=== PATIENT | female | born 1975 | race Caucasian/White ===

== ENCOUNTER → 2017-06-15 | Outpatient (CLI) | payer MEDICARE, OTHER ==
[2017-06-15 08:43] LABS: CH 31.7; CHCM 33.5; HCT 41.6 % (34.0-46.0); HDW 2.64; HGB 13.5 gm/dL (11.4-16.0); MCH 30.8 pg (25.0-35.0); MCHC 32.5 g/dL (31.0-37.0); MCV 94.9 fL (80.0-100.0); Mean Platelet Volume 6.5; RBC 4.38 m/uL (3.80-5.40); RDW 14.3 % (11.5-15.5); WBC 9.2 k/uL (3.8-10.6)
[2017-06-15 09:02] LABS: ALT 38 U/L (9-52); AST 19 U/L (14-36); Alkaline Phosphatase 76 U/L (38-126); Anion Gap 10 mmol/L; Blood Urea Nitrogen 12 mg/dL (7-17); Calcium 9.6 mg/dL (8.4-10.2); Carbon Dioxide 26 mmol/L (22-30); Chloride 104 mmol/L (98-107); Cholesterol 219 mg/dL (<200); Glucose 102 mg/dL (74-99); HDL Cholesterol 55 mg/dL (40-60); Non-African American GFR(MDRD) >60 (>60 ml/min/1.73 sqM); Potassium 3.8 mmol/L (3.5-5.1); Sodium 140 mmol/L (137-145); Total Bilirubin 0.3 mg/dL (0.2-1.3); Total Protein 6.8 g/dL (6.3-8.2); Triglycerides 270 mg/dL (<150)
== END | disposition home or self-care (01) ==
LOC: LABWHC1 08:05
PROVIDERS: ATTEND Internal Medicine
DX: Z00.01 Encounter for general adult medical examination with abnormal findings (principal); E78.2 Mixed hyperlipidemia; E03.9 Hypothyroidism, unspecified; I11.9 Hypertensive heart disease without heart failure
CPT/HCPCS: 36415; 80053; 80061; 84439; 84443; 85027

== ENCOUNTER → 2017-06-16 | Outpatient (CLI) | payer MEDICARE ==
--- NOTE | 2017-06-16 19:55 | HP ---
DATE OF DICTATION: 06/16/2017 CHIEF COMPLAINT: The patient is here for her routine gynecologic exam and mammogram. HISTORY OF PRESENT ILLNESS: This is a 41-year-old with an LMP of 06/05/17. The patient is status post tubal ligation. The patient is without gynecologic complaints. PAST MEDICAL HISTORY: 1. Hypothyroidism. 2. Brain aneurysm, status post stent placement. 3. Headaches. 4. Degenerative disc disease. MEDICATIONS: 1. Potassium supplement 10 mEq daily. 2. Thyroxine 50 mcg daily. 3. Enalapril malleate 5 mg daily. 4. Naproxen sodium 550 mg p.r.n. 5. Furosemide 40 mg daily. 6. Nortriptyline HCL 50 mg daily. ALLERGIES: NO KNOWN DRUG ALLERGIES. PAST SURGICAL HISTORY: Unchanged from the 2014 H&P. 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 SOCIAL HISTORY: She admits to smoking 1 to 2 cigarettes per day and has about 5 alcoholic drinks per month. She states she rarely used marijuana and denies any other drug use. She is single and is not seeing anybody at this time. She is disabled. FAMILY HISTORY: Unchanged from the 2015 H&P. REVIEW OF SYSTEMS: Weight has been stable. She denies respiratory, cardiac or GI problems. PHYSICAL EXAM: Blood pressure 115/82. Height 5 feet 2-1/2 inches. Weight 207 pounds. Temperature 99.0, pulse 78. This is a well-developed, heavyset white female who is alert and oriented x3, in no acute distress. HEENT is within normal limits. NECK: Supple without mass or thyromegaly. CHEST AND LUNGS: Clear to auscultation. HEART: Regular rate and rhythm. Breasts are without mass or discharge. Axillary exam is negative for adenopathy. BACK: Negative for CVA tenderness. ABDOMEN: Soft, non-tender, without palpable masses. PELVIC EXAM: Normal external genitalia. Cervix and vagina appear normal. There is no evidence of prolapse. The uterus is mid position, non-gravid size and non- tender. There are no palpable adnexal masses or tenderness. Rectal exam is negative for mass or tenderness but does reveal some external hemorrhoids, which are not inflamed. The rectal exam is negative for occult blood. Extremities are non-tender. IMPRESSION: Jynju-cpxeh-[id number]-old gynecologically healthy female with normal gynecologic exam. PLAN: 1. Pap smear was performed. 2. Self breast examination was discussed. 3. Mammogram will be done today. 4. She will return in one year. KAMI
--- NOTE | 2017-06-17 08:48 | MM ---
Reason for exam: screening (asymptomatic). Last mammogram was performed 1 year and 9 months ago. Physical Findings: A clinical breast exam by your physician is recommended on an annual basis and results should be correlated with mammographic findings. MG 3D Screening Mammo W/Cad Bilateral CC and MLO view(s) were taken. Prior study comparison: September 17, 2015, bilateral MG screening mammo w CAD. June 05, 2014, bilateral MG screening mammo w CAD. The breast tissue is heterogeneously dense. This may lower the sensitivity of mammography. There is no discrete abnormality. No significant changes when compared with prior studies. ASSESSMENT: Negative, BI-RAD 1 RECOMMENDATION: Routine screening mammogram of both breasts in 1 year.
== END | disposition home or self-care (01) ==
LOC: WWCWWP 08:05
PROVIDERS: ATTEND Obstetrics & Gynecology
DX: Z12.31 Encounter for screening mammogram for malignant neoplasm of breast (principal)
CPT/HCPCS: 77063; G0202

== ENCOUNTER → 2017-07-14 | Outpatient (CLI) | payer MEDICARE ==
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
[2017-07-14 11:31] LABS: Hepatitis B Surface Ag Index 0.06
[2017-07-14 11:48] LABS: Hepatitis C Virus IgG Ab Negative (Negative); Hepatitis C Virus IgG Index 0.02
[2017-07-14 18:38] LABS: Treponemal Ab Non-Reactive (Non-Reactive)
== END ==
LOC: WWCWWP 09:06
PROVIDERS: ATTEND Obstetrics & Gynecology
DX: Z11.3 Encounter for screening for infections with a predominantly sexual mode of transmission (principal)
CPT/HCPCS: 86780; 86803; 87340; 87390; 87491; 87591

== ENCOUNTER 2017-11-27 22:12 | Emergency (ER) | payer MEDICARE, OTHER ==
[2017-11-27] MEDS ORDERED: ACETAMINOPHEN TAB 500 MG TAB PO STA (22:52)
[2017-11-27] MEDS ORDERED: ONDANSETRON ODT 4 MG TAB PO STA (22:52)
[2017-11-27] MEDS ORDERED: KETOROLAC 60 MG/2 ML VIAL IM STA (22:52)
--- NOTE | 2017-11-27 23:16 | XR ---
EXAMINATION TYPE: XR chest 2V DATE OF EXAM: 11/27/2017 COMPARISON: 08/19/2016 HISTORY: Cough and fever TECHNIQUE: Frontal and lateral views of the chest are obtained. FINDINGS: Heart and mediastinum are normal. Lungs are clear. Diaphragm is normal. Bony thorax and so ft tissues appear normal. IMPRESSION: Normal chest. No change.
--- NOTE | 2017-11-27 23:31 | ED ---
URI HPI - General Chief Complaint: Upper Respiratory Infection Stated Complaint: Cough Time Seen by Provider: 11/27/17 22:44 Source: patient, RN notes reviewed Mode of arrival: ambulatory Limitations: no limitations - History of Present Illness Initial Comments: 42-year-old female presents emergency Department chief complaint cough congestion. Patient states she has been sick for 1 week diagnosed with influenza 6 days ago. Patient states that she was not given any Tamiflu she states she was given a prescription for ibuprofen and she has not been taking any Tylenol. She complains of congestion cough still. States she just does not feel well. Denies any abdominal pain denies chest pain or shortness of breath. She states she hasn't pressure and left ear states it feels like and used a pop. Patient denies any other [id number] cough and cold medications. - Related Data Home Medications Medication Instructions Recorded Confirmed Enalapril [Vasotec] 5 mg PO DAILY 04/09/15 08/08/15 Levothyroxine Sodium [Synthroid] 50 mcg PO DAILY 04/09/15 08/08/15 Nortriptyline HCl [Nortriptyline 75 mg PO DAILY 04/09/15 08/08/15 HCl] Verapamil HCl [Verapamil ER] 180 mg PO DAILY 04/24/15 08/08/15 Previous Rx's Medication Instructions Recorded Furosemide [Lasix] 20 mg PO DAILY #10 tab 04/24/15 Sulfamethox-Tmp 800-160Mg [Bactrim 2 each PO Q12HR #40 tab 08/08/15 DS 800-160 mg] Acetaminophen Tab [Tylenol Tab] 500 mg PO Q4H #30 tablet 11/27/17 Ibuprofen [Motrin] 600 mg PO Q8HR PRN #30 tab 11/27/17 Promethaz-Cod 6.25-10 mg/5 ml 5 ml PO Q6HR PRN #120 ml 11/27/17 [Phenergan with Codeine] Allergies Allergy/AdvReac Type Severity Reaction Status Date / Time No Known Allergies Allergy Verified 11/27/17 22:17 Review of Systems ROS Statement: Those systems with pertinent positive or pertinent negative responses have been documented in the HPI. ROS Other: All systems not noted in ROS Statement are negative. Past Medical History Past Medical History: Hypertension, Thyroid Disorder Additional Past Medical History / Comment(s): brain aneurism History of Any Multi-Drug Resistant Organisms: MRSA Date of last positivie culture/infection: 2007 MDRO Source:: face Past Surgical History: Section, Orthopedic Surgery Additional Past Surgical History / Comment(s): rt sided brain coil and stent, knee x3 Past Psychological History: No Psychological Hx Reported Smoking Status: Current every day smoker Past Alcohol Use History: Occasional Past Drug Use History: Marijuana General Exam Limitations: no limitations General appearance: alert, in no apparent distress Head exam: Present: atraumatic, normocephalic, normal inspection Eye exam: Present: normal appearance, PERRL, EOMI. Absent: scleral icterus, conjunctival injection, periorbital swelling ENT exam: Present: normal exam, normal oropharynx, mucous membranes moist, TM's normal bilaterally, normal external ear exam Neck exam: Present: normal inspection, full ROM. Absent: tenderness, meningismus, lymphadenopathy Respiratory exam: Present: normal lung sounds bilaterally. Absent: respiratory distress, wheezes, rales, rhonchi, stridor Cardiovascular Exam: Present: regular rate, normal rhythm, normal heart sounds. Absent: systolic murmur, diastolic murmur, rubs, gallop, clicks GI/Abdominal exam: Present: soft, normal bowel sounds. Absent: distended, tenderness, guarding, rebound, rigid Skin exam: Present: warm, dry, intact, normal color. Absent: rash Course Vital Signs 11/27/17 22:13 Temperature 98.1 F Pulse Rate 72 Respiratory 20 Rate Blood Pressure 207/90 O2 Sat by Pulse 99 Oximetry Medical Decision Making - Medical Decision Making 42-year-old female presented for cough congestion. Patient states that she is not feeling better. Patient does have influenza diagnosed prior. Patient's x- ray shows no acute infiltrate. I did explain that she needs to take Tylenol Motrin for symptoms the symptoms last 10-14 days and cough may last longer. Patient will be given cough suppressant Tylenol and Motrin. Disposition Clinical Impression: Influenza Disposition: HOME SELF-CARE Condition: Stable Instructions: Influenza (ED) Additional Instructions: Please return to the Emergency Department if symptoms worsen or any other concerns. Prescriptions: Acetaminophen Tab [Tylenol Tab] 500 mg PO Q4H #30 tablet Ibuprofen [Motrin] 600 mg PO Q8HR PRN #30 tab PRN Reason: Pain Promethaz-Cod 6.25-10 mg/5 ml [Phenergan with Codeine] 5 ml PO Q6HR PRN #120 ml PRN Reason: Cough Referrals: Agustin Garcia MD [Primary Care Provider] - 1-2 days Time of Disposition: 23:31
[2017-11-27 23:43] VITALS: BP 159/83; PULSE 70; RESP 19; TEMP 99
== END 2017-11-27 23:43 | disposition home or self-care (01) ==
LOC: EC 22:12
DX: J11.1 Influenza due to unidentified influenza virus with other respiratory manifestations (principal); I10 Essential (primary) hypertension; E07.9 Disorder of thyroid, unspecified; F17.200 Nicotine dependence, unspecified, uncomplicated; Z86.14 Personal history of Methicillin resistant Staphylococcus aureus infection; Z79.899 Other long term (current) drug therapy
CPT/HCPCS: 71020; 99283; 96372; J1885

== ENCOUNTER 2018-08-12 16:23 | Inpatient (IN) | payer MEDICARE, MEDICAID ==
[2018-08-12] MEDS ORDERED: DIPH,PERTUS(ACELL)TETVAC-LF 0.5 ML VIAL IM ONE (17:09)
--- NOTE | 2018-08-12 17:09 | ED ---
Psych HPI - General Chief Complaint: Psychiatric Symptoms Stated Complaint: Mental Health Time Seen by Provider: 08/12/18 16:30 Source: patient, RN notes reviewed Mode of arrival: ambulatory Limitations: no limitations - History of Present Illness Initial Comments: 42-year-old male presents emergency Department chief complaint of depression, suicidal ideation. Patient states she's having worsening depression last few weeks. Patient states it's just been building up on her and states that she wanted to hurt herself today. Patient states that she took a kitchen knife to her left wrist. She is unsure when her last tetanus was. She states there are abrasions noted to the wrist denies any other injuries. Patient denies any drug or alcohol abuse. Denies any other physical complaints. - Related Data Home Medications Medication Instructions Recorded Confirmed DULoxetine HCL [Cymbalta] 60 mg PO DAILY 08/12/18 08/12/18 Furosemide [Lasix] 60 mg PO DAILY 08/12/18 08/12/18 Levothyroxine Sodium [Synthroid] 75 mcg PO DAILY 08/12/18 08/12/18 Nortriptyline [Pamelor] 100 mg PO HS 08/12/18 08/12/18 traMADol HCL [Ultram] 50 mg PO QID PRN 08/12/18 08/12/18 Allergies Allergy/AdvReac Type Severity Reaction Status Date / Time No Known Allergies Allergy Verified 08/12/18 19:47 Review of Systems ROS Statement: Those systems with pertinent positive or pertinent negative responses have been documented in the HPI. ROS Other: All systems not noted in ROS Statement are negative. Past Medical History Past Medical History: Hypertension, Thyroid Disorder Additional Past Medical History / Comment(s): brain aneurism History of Any Multi-Drug Resistant Organisms: MRSA Date of last positivie culture/infection: 2007 MDRO Source:: face Past Surgical History: Section, Orthopedic Surgery Additional Past Surgical History / Comment(s): rt sided brain coil and stent, knee x3 Past Psychological History: Anxiety, Bipolar, Depression Smoking Status: Current every day smoker Past Alcohol Use History: Occasional Past Drug Use History: Marijuana General Exam Limitations: no limitations General appearance: alert, in no apparent distress, other (Patient is tearful) Head exam: Present: atraumatic, normocephalic, normal inspection Eye exam: Present: normal appearance, PERRL, EOMI. Absent: scleral icterus, conjunctival injection, periorbital swelling ENT exam: Present: normal exam, normal oropharynx, mucous membranes moist Neck exam: Present: normal inspection, full ROM. Absent: tenderness, meningismus, lymphadenopathy Respiratory exam: Present: normal lung sounds bilaterally. Absent: respiratory distress, wheezes, rales, rhonchi, stridor Cardiovascular Exam: Present: regular rate, normal rhythm, normal heart sounds. Absent: systolic murmur, diastolic murmur, rubs, gallop, clicks Extremities exam: Present: other (Superficial laceration/abrasion noted to the left wrist) Neurological exam: Present: alert, oriented X3, CN II-XII intact, reflexes normal. Absent: motor sensory deficit Skin exam: Present: warm, dry, intact, normal color. Absent: rash Course Vital Signs 08/12/18 16:25 Temperature 98.2 F Pulse Rate 77 Respiratory 18 Rate Blood Pressure 109/61 O2 Sat by Pulse 99 Oximetry Medical Decision Making - Lab Data Result diagrams: 08/13/18 09:03 08/13/18 09:03 Lab Results 08/12/18 Range/Units 17:45 Urine Opiates Screen Not Detected (NotDetected) Ur Oxycodone Screen Not Detected (NotDetected) Urine Methadone Screen Not Detected (NotDetected) Ur Propoxyphene Screen Not Detected (NotDetected) Ur Barbiturates Screen Not Detected (NotDetected) U Tricyclic Antidepress Detected H (NotDetected) Ur Phencyclidine Scrn Not Detected (NotDetected) Ur Amphetamines Screen Not Detected (NotDetected) U Methamphetamines Scrn Not Detected (NotDetected) U Benzodiazepines Scrn Not Detected (NotDetected) Urine Cocaine Screen Not Detected (NotDetected) U Marijuana (THC) Screen Detected H (NotDetected) Disposition Clinical Impression: Depression Disposition: ADMITTED IP TO THIS HOSP
[2018-08-12 18:20] LABS: Amphetamine Screen,Urine Not Detected (NotDetected); Barbiturate Screen,Urine Not Detected (NotDetected); Benzodiazepines Screen,Urine Not Detected (NotDetected); Cocaine Screen,Urine Not Detected (NotDetected); Methadone Screen, Urine Not Detected (NotDetected); Opiate Screen,Urine Not Detected (NotDetected); Oxycodone Screen, Urine Not Detected (NotDetected); Phencyclidine Screen,Urine Not Detected (NotDetected); Tricyclic Antidepressant,Urine Detected (NotDetected); Urn Cannabinoid Scrn Detected (NotDetected)
[2018-08-12] MEDS ORDERED: MAG HYDROX/AL HYDROX/SIMETH 30 ML CUP PO PRN (19:32)
[2018-08-12] MEDS ORDERED: ZIPRASIDONE 20 MG VIAL IM PRN (19:32)
[2018-08-12] MEDS ORDERED: ACETAMINOPHEN TAB 325 MG TAB PO PRN (19:32)
--- NOTE | 2018-08-12 20:51 | P.HPMEDMHU ---
History of Present Illness H&P Date: 08/12/18 Chief Complaint: Major depressive disorder 42-year-old female with PMH of brain aneurysm status post coiling and stenting in April 2019 at [facility], h/o CVA, hypothyroidism, hypertension, DJD of the back presents to the ED for worsening depression and suicidal ideation. Patient reports worsening depression over the past few weeks, leading to suicidal ideation and an attempt today. Patient reports wanting to end her life, took a kitchen knife to her left wrist which left her with abrasions. She otherwise has no direct complaints. She denies any nausea, vomiting, fever, cough, chest pain, shortness of breath, palpitations, changes in urination or bowel habits. Patient does report a decreased appetite over the past few weeks. She denies any dizziness, numbness, weakness, tingling. Patient reports chronic lower back pain with occasional radiation to the right lower extremity. Patient reports occasional headaches, aggravated with bending forward. She takes the Fioricet for her headaches. Patient also reports occasional whole body swelling for which she takes Lasix. Patient states she had been worked up previously for her swelling, no obvious cause found, attributes it to her hypothyroidism. Review of Systems All systems: negative Past Medical History Past Medical History: Hypertension, Thyroid Disorder Additional Past Medical History / Comment(s): brain aneurism History of Any Multi-Drug Resistant Organisms: MRSA Date of last positivie culture/infection: 2007 MDRO Source:: face Past Surgical History: Section, Orthopedic Surgery Additional Past Surgical History / Comment(s): rt sided brain coil and stent, knee x3 Smoking Status: Current every day smoker Medications and Allergies Home Medications Medication Instructions Recorded Confirmed Type DULoxetine HCL [Cymbalta] 60 mg PO DAILY 08/12/18 08/12/18 History Furosemide [Lasix] 60 mg PO DAILY 08/12/18 08/12/18 History Levothyroxine Sodium [Synthroid] 75 mcg PO DAILY 08/12/18 08/12/18 History Nortriptyline [Pamelor] 100 mg PO HS 08/12/18 08/12/18 History traMADol HCL [Ultram] 50 mg PO QID PRN 08/12/18 08/12/18 History Allergies Allergy/AdvReac Type Severity Reaction Status Date / Time No Known Allergies Allergy Verified 08/12/18 19:47 Physical Exam Vitals: Vital Signs Temp Pulse Resp BP Pulse Ox 08/12/18 16:25 98.2 F 77 18 109/61 99 Intake and Output 08/12/18 08/12/18 08/12/18 06:59 14:59 22:59 Other: Weight 81.647 kg General: [non toxic], [no distress], [appears at stated age] Derm: [warm], [dry] Head: [atraumatic], [normocephalic], [symmetric] Eyes: [EOMI], [no lid lag], [anicteric sclera] Mouth: [no lip lesion], [mucus membranes moist] Cardiovascular: [S1S2 reg], [no murmur], [positive DP pulse bilateral] Lungs: [CTA bilateral], [no rhonchi, no rales] , [no accessory muscle use] Abdominal: [soft], [ nontender to palpation], [no guarding], [no appreciable organomegaly] Ext: [no gross muscle atrophy], [no edema], [no contractures], [L wrist abrasion ] Neuro: [ CN II-XI grossly intact], [no focal neuro deficits] Psych: [Alert], [oriented], [appropriate affect] Cranial Nerve Examination - Cranial Nerves Cranial Nerve II- Optic: Intact Cranial Nerve III- Oculomotor: Intact Cranial Nerve IV- Trochlear: Intact Cranial Nerve V- Trigeminal: Intact Cranial Nerve - Abducens: Intact Cranial Nerve VII- Facial: Intact Cranial Nerve VIII- Auditory: Intact Cranial Nerve IX- Glossopharyngeal: Intact Cranial Nerve X- Vagus: Intact Cranial Nerve XI- Accessory: Intact Cranial Nerve XII- Hypoglossal: Intact Results Labs: Abnormal Lab Results - Last 24 Hours (Table) 08/12/18 Range/Units 17:45 U Tricyclic Antidepress Detected H (NotDetected) U Marijuana (THC) Screen Detected H (NotDetected) Thrombosis Risk Factor Assmnt - Choose All That Apply Any of the Below Risk Factors Present?: Yes Each Factor Represents 1 point: Age 41-60 years Other Risk Factors: No Other congenital or acquired thrombophilia - If yes, enter type in comment: No Thrombosis Risk Factor Assessment Total Risk Factor Score: 1 Thrombosis Risk Factor Assessment Level: Low Risk Assessment and Plan Assessment: Assessment and Plan 1. Chronic HUYNH: Likely related to brain aneurysm. Advised against [facility] for HUYNH ( rebound). Pain management with Tylenol and Tramadol. Will avoid Fioricet due to caffeine. 2. Hypothyroidism: Stable. Continue Synthroid 75 mcg PO QD. FU TSH 3. DJD of the L-spine: With radiculopathy. Pain management with Tylenol and Tramadol. Continue Cymbalta 60 mg PO QD. 4. Substance abuse: Nicotine patch 14 mg TRANSDERM QD. 5. Major Depression: With SI. Management as per Psyc. 6. DVT/GI Prophyaxis: Low risk for DVT, early mobilization. Pepcid 20 mg PO BID.
[2018-08-12] MEDS: NICOTINE 14MG/24HR PATCH TRANSDERM SCH (20:54)
[2018-08-12] MEDS: NORTRIPTYLINE 25 MG CAP PO SCH (20:54)
[2018-08-13] MEDS: LEVOTHYROXINE 75 MCG TAB PO SCH (06:24)
[2018-08-13] MEDS: DULoxetine HCL 60 MG CAPSULE.DR PO SCH (09:12)
[2018-08-13] MEDS: NICOTINE 14MG/24HR PATCH TRANSDERM SCH (09:12)
[2018-08-13 09:17] LABS: Basophils # (A) 0.1 k/uL (0-0.2); Basophils % (A) 1 %; Eosinophils # (A) 0.2 k/uL (0-0.7); Eosinophils % (A) 2 %; HCT 46.2 % (34.0-46.0); HGB 15.3 gm/dL (11.4-16.0); Lymphocytes # (A) 2.4 k/uL (1.0-4.8); Lymphocytes % (A) 27 %; MCH 31.9 pg (25.0-35.0); MCHC 33.2 g/dL (31.0-37.0); Mean Platelet Volume 6.7; Monocytes # (A) 0.4 k/uL (0-1.0); Monocytes % (A) 5 %; Neutrophils # (A) 5.7 k/uL (1.3-7.7); Neutrophils % (A) 65 %; Platelet Count 343 k/uL (150-450); RBC 4.81 m/uL (3.80-5.40); RDW 13.4 % (11.5-15.5); WBC 8.9 k/uL (3.8-10.6)
[2018-08-13 09:30] LABS: Albumin 4.1 g/dL (3.5-5.0); Bilirubin, Delta 0.3 mg/dL (0.0-0.2); Bilirubin,Unconjugated 0.2 mg/dL (0.0-1.1); Calcium 9.4 mg/dL (8.4-10.2); Potassium 4.1 mmol/L (3.5-5.1); Total Bilirubin 0.5 mg/dL (0.2-1.3); Total Protein 6.9 g/dL (6.3-8.2)
[2018-08-13] MEDS: ARIPiprazole 2 MG TAB PO SCH (16:58)
[2018-08-13] MEDS: FUROSEMIDE 20 MG TAB PO SCH (17:48)
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
[2018-08-13] MEDS: NORTRIPTYLINE 25 MG CAP PO SCH (20:16)
[2018-08-14] MEDS: LEVOTHYROXINE 75 MCG TAB PO SCH (06:33)
[2018-08-14] MEDS: NICOTINE 14MG/24HR PATCH TRANSDERM SCH (08:44)
[2018-08-14] MEDS: DULoxetine HCL 60 MG CAPSULE.DR PO SCH (08:44)
[2018-08-14] MEDS: FUROSEMIDE 20 MG TAB PO SCH (08:44)
[2018-08-14] MEDS: ARIPiprazole 2 MG TAB PO SCH (08:44)
--- NOTE | 2018-08-14 13:02 | PN ---
PROGRESS NOTE HISTORY: Patient was seen and interviewed, found a lot better. She reports her mood has been improving since we started her on medication. She is tolerating well, reporting no side effects. She did sleep good. She denies any active suicidal ideation, but she still continues to be withdrawn and isolated. She reports low energy, lack of motivation. She said groups are helping her. MENTAL STATUS EXAMINATION: The patient is alert and oriented x4. Has fair eye contact. Speech, few word sentences. Mood dysphoric with congruent affect. Denies suicidal ideation. I did not see her responding to internal stimuli. Insight and judgement improving slowly and gradually. ASSESSMENT: Major depressive disorder, recurrent, severe, without psychotic features. PLAN: Will continue with the Cymbalta and titrate up accordingly. Encouraged to do groups and meetings. Support therapy provided. CHRISTOPHER / ZONIA: [id number] /
[2018-08-14] MEDS: NORTRIPTYLINE 25 MG CAP PO SCH (20:49)
[2018-08-15] MEDS: LEVOTHYROXINE 75 MCG TAB PO SCH (05:40)
[2018-08-15] MEDS: NICOTINE 14MG/24HR PATCH TRANSDERM SCH (07:58)
[2018-08-15] MEDS: ARIPiprazole 2 MG TAB PO SCH (07:58)
[2018-08-15] MEDS: DULoxetine HCL 60 MG CAPSULE.DR PO SCH (07:59)
[2018-08-15] MEDS: FUROSEMIDE 20 MG TAB PO SCH (07:59)
--- NOTE | 2018-08-15 14:40 | P.PN ---
Subjective Progress Note Date: 08/15/18 Principal diagnosis: Major depressive disorder, severe, with history of suicidal ideation 42-year-old male presents emergency Department chief complaint of depression, suicidal ideation. Patient states she's having worsening depression last few weeks. Patient states it's just been building up on her and states that she wanted to hurt herself today. Patient states that she took a kitchen knife to her left wrist. She is unsure when her last tetanus was. She states there are abrasions noted to the wrist denies any other injuries. Patient denies any drug or alcohol abuse. Denies any other physical complaints. Past Medical History Past Medical History: Hypertension, Thyroid Disorder Additional Past Medical History / Comment(s): brain aneurism History of Any Multi-Drug Resistant Organisms: MRSA Date of last positivie culture/infection: 2007 MDRO Source:: face Past Surgical History: Section, Orthopedic Surgery Additional Past Surgical History / Comment(s): rt sided brain coil and stent, knee x3 Past Psychological History: Anxiety, Bipolar, Depression Smoking Status: Current every day smoker Past Alcohol Use History: Occasional Past Drug Use History: Marijuana Mental status examination today: She does have some abnormal facial drooping due to post-aneurysm surgery and has mood instability. Her gait appears grossly normal as well as her station appears grossly normal. This is a 42-year -old female with a significant history of depression appears to be secondary to worsening suicidal ideation. This 42-year-old female appears somewhat disheveled and appears older than stated age her speech is hesitant at times attitude and behaviors cooperative. Mood is depressed anxious irritable and hopelessness. Affect flat labile. Orientation person place and time and situation. Thought content no delusions obsessions and phobias. Risk factors for suicidal ideation. Perceptions no hallucinations auditory visual or tactile. Thought process somewhat certain circumstantial and tangential at times. Concentration appears somewhat impaired but redirectable for observation and interview with the patient. Recent memory 1 out of 3. Remote memory is within normal for past events is relates to her history. Intelligence is average based on history and vocabulary Syntex grammar content. Judgment is poor for patient behaving history of wanting to kill herself. Insight fair as per understanding severity of illness and history of present illness. Justification for hospitalization "danger to self depression and anxiety resulting in a significant loss of functioning, needing for special drug therapy , para social and occupational, biomedical conditions and complications were 24- hour medical nursing care, and treatment of a lower level because she refused to [facility] for treatment. X Nortriptyline 100 mg at bedtime Venlafaxine 37.5 mg XR at bedtime Topamax 25 mg by mouth daily at bedtime DC Nilsalijuan jose, DC Cymbalta for a have a conversation rate and [employer] abnormalities such as the aneurysm that was replaced. She has classic migraines on the right side post aneurysm and surgery. She's been on nortriptyline for number of years and will check a nortriptyline level as well as a hemoglobin A1c level. Venlafaxine has been shown to be effective and chronic pain patients/with anxiety and depression and has a minimal interaction with tricyclic antidepressants. Total time spent with patient 30 minutes [id number] and collaboration with staff 15 minutes. Objective - Vital Signs Vital signs: Vital Signs Temp 97.9 F 08/15/18 06:44 Pulse 75 08/15/18 08:02 Resp 18 08/15/18 08:02 BP 116/77 08/15/18 08:02 Pulse Ox 98 08/15/18 06:44 Intake & Output 08/14/18 08/15/18 08/15/18 18:59 06:59 18:59 Weight 82.8 kg - Labs CBC & Chem 7: 08/13/18 09:03 08/13/18 09:03
[2018-08-15 20:00] LABS: Hemoglobin A1C 5.1 % (4.0-6.0)
[2018-08-15] MEDS: NORTRIPTYLINE 25 MG CAP PO SCH (20:02)
[2018-08-15] MEDS: traMADol 50 MG TAB PO PRN (20:03)
[2018-08-15] MEDS ORDERED: TOPIRAMATE 25 MG TAB PO SCH (21:00)
[2018-08-15] MEDS ORDERED: VENLAFAXINE HCL ER 37.5 MG CAP PO SCH (21:00)
[2018-08-15] MEDS: MAGNESIUM HYDROXIDE 2,400 MG/10 ML CUP PO PRN (22:39)
[2018-08-16] MEDS: LEVOTHYROXINE 75 MCG TAB PO SCH (06:27)
[2018-08-16] MEDS: NICOTINE 14MG/24HR PATCH TRANSDERM SCH (08:35)
[2018-08-16] MEDS: LIDOCAINE 5% PATCH TOPICAL SCH (08:36)
[2018-08-16] MEDS: FUROSEMIDE 20 MG TAB PO SCH (08:36)
[2018-08-16] MEDS: MAGNESIUM HYDROXIDE 2,400 MG/10 ML CUP PO PRN (08:38)
--- NOTE | 2018-08-16 13:38 | P.PN ---
Subjective Progress Note Date: 08/16/18 Principal diagnosis: Major depressive disorder, severe, with history of suicidal ideation This 42-year-old female appears somewhat disheveled and appears older than stated age her speech is hesitant at times attitude and behaviors cooperative. Mood is depressed anxious irritable and hopelessness. Mental status examination today: She does have some abnormal facial drooping due to post-aneurysm surgery and has mood instability. Her gait appears grossly normal as well as her station appears grossly normal. This is a 42-year -old female with a significant history of depression appears to be secondary to worsening suicidal ideation. Today no suicidal thoughts. She had an agree moment today but did no loose it.Affect flat labile. Orientation person place and time and situation. Thought content no delusions obsessions and phobias. Risk factors for suicidal ideation. Perceptions no hallucinations auditory visual or tactile. Thought process somewhat certain circumstantial and tangential at times. Concentration appears somewhat impaired but redirectable for observation and interview with the patient. Recent memory 1 out of 3. Remote memory is within normal for past events is relates to her history. Intelligence is average based on history and vocabulary Syntex grammar content. Judgment is poor for patient behaving history of wanting to kill herself. Insight fair as per understanding severity of illness and history of present illness. Nortriptyline 100 mg at bedtime Venlafaxine 75 mg XR at bedtime Topamax 50 mg by mouth daily twice She has classic migraines on the right side post aneurysm and surgery. She's been on nortriptyline for number of years and will check a nortriptyline level as well as a hemoglobin A1c level which is 5.1 Venlafaxine has been shown to be effective and chronic pain patients/with anxiety and depression and has a minimal interaction with tricyclic antidepressants. Objective - Vital Signs Vital signs: Vital Signs Temp 98.3 F 08/16/18 06:40 Pulse 73 08/16/18 06:40 Resp 20 08/16/18 06:40 BP 138/78 08/16/18 06:40 Pulse Ox 98 08/15/18 06:44 - Constitutional General appearance: Present: mild distress - EENT Eyes: Present: ptosis ENT: Present: normal oropharynx - Psychiatric Psychiatric: Present: A&O x's 3 - Labs CBC & Chem 7: 08/13/18 09:03 08/13/18 09:03
[2018-08-16 14:09] LABS: Amit + Nort INDTRMNT ng/mL (90-250); Nortriptyline 80 ng/mL (50-140)
[2018-08-16] MEDS: NORTRIPTYLINE 25 MG CAP PO SCH (20:48)
[2018-08-16] MEDS: TOPIRAMATE 25 MG TAB PO SCH (20:48)
[2018-08-16] MEDS: traMADol 50 MG TAB PO PRN (20:48)
[2018-08-16] MEDS ORDERED: NA PHOS,M-B/NA PHOS,DI-BA 133 ML ENEMA RECTAL ONE (23:02)
[2018-08-17] MEDS: LEVOTHYROXINE 75 MCG TAB PO SCH (06:15)
[2018-08-17] MEDS: TOPIRAMATE 25 MG TAB PO SCH ×2 (09:18→21:16)
[2018-08-17] MEDS: NICOTINE 14MG/24HR PATCH TRANSDERM SCH (09:19)
[2018-08-17] MEDS: FUROSEMIDE 20 MG TAB PO SCH (09:19)
[2018-08-17] MEDS: LIDOCAINE 5% PATCH TOPICAL SCH (09:20)
[2018-08-17] MEDS: traMADol 50 MG TAB PO PRN (09:24)
--- NOTE | 2018-08-17 09:37 | P.PN ---
Subjective Progress Note Date: 08/17/18 Principal diagnosis: Major depressive disorder, severe, with history of suicidal ideation Principal diagnosis: Major depressive disorder, severe, with history of suicidal ideation This 42-year-old female appears somewhat disheveled and appears older than stated age her speech is hesitant at times attitude and behaviors cooperative. Mood is depressed anxious irritable and hopelessness. Mental status examination today: She does have some abnormal facial drooping due to post-aneurysm surgery and has mood instability. Her gait appears grossly normal as well as her station appears grossly normal. This is a 42-year -old female with a significant history of depression appears to be secondary to worsening suicidal ideation. Today no suicidal thoughts. She had an agree moment today but did no loose it.Affect flat labile. Orientation person place and time and situation. Thought content no delusions obsessions and phobias. Risk factors for suicidal ideation. Perceptions no hallucinations auditory visual or tactile. Thought process somewhat certain circumstantial and tangential at times. Concentration appears somewhat impaired but redirectable for observation and interview with the patient. Recent memory 1 out of 3. Remote memory is within normal for past events is relates to her history. Intelligence is average based on history and vocabulary Syntex grammar content. Judgment is poor for patient behaving history of wanting to kill herself. Insight fair as per understanding severity of illness and history of present illness. Nortriptyline 100 mg at bedtime for sleep Venlafaxine 37.5 mg XR at bedtime start tonight Topamax 75 mg by mouth daily twice changed today She has classic migraines on the right side post aneurysm and surgery. She's been on nortriptyline for number of years and will check a nortriptyline level as well as a hemoglobin A1c level which is 5.1 Venlafaxine has been shown to be effective and chronic pain patients/with anxiety and depression and has a minimal interaction with tricyclic antidepressants. Objective - Vital Signs Vital signs: Vital Signs Temp 98.2 F 08/17/18 06:23 Pulse 62 08/17/18 06:23 Resp 14 08/17/18 06:23 BP 117/72 08/17/18 06:23 Pulse Ox 98 08/15/18 06:44 - Labs CBC & Chem 7: 08/13/18 09:03 08/13/18 09:03 Labs: Abnormal Lab Results - Last 24 Hours (Table) 08/16/18 Range/Units 13:57 Total T4 12.0 H (4.5 - 10.9) ug/dL
[2018-08-17] MEDS ORDERED: VENLAFAXINE HCL ER 37.5 MG CAP PO SCH (21:00)
[2018-08-17] MEDS: NORTRIPTYLINE 25 MG CAP PO SCH (21:16)
[2018-08-17] MEDS: MAGNESIUM HYDROXIDE 2,400 MG/10 ML CUP PO PRN (21:19)
[2018-08-18] MEDS: LEVOTHYROXINE 75 MCG TAB PO SCH (06:49)
[2018-08-18] MEDS: NICOTINE 14MG/24HR PATCH TRANSDERM SCH (08:41)
[2018-08-18] MEDS: LIDOCAINE 5% PATCH TOPICAL SCH (08:42)
[2018-08-18] MEDS: TOPIRAMATE 25 MG TAB PO SCH (08:42)
[2018-08-18] MEDS: FUROSEMIDE 20 MG TAB PO SCH (08:43)
--- NOTE | 2018-08-18 12:41 | P.PN ---
Subjective Progress Note Date: 08/18/18 Principal diagnosis: Major depressive disorder, severe, with history of suicidal ideation Principal diagnosis: Major depressive disorder, severe, with history of suicidal ideation This 42-year-old female appears somewhat disheveled and appears older than stated age her speech is hesitant at times attitude and behaviors cooperative. Mood is depressed anxious irritable and hopelessness.Complaints of constipation. She also has right eye vision change with halo and like looking thru prisms. ? Mental status examination today: She does have some abnormal facial drooping due to post-aneurysm surgery and has mood instability. Her gait appears grossly normal as well as her station appears grossly normal. This is a 42-year -old female with a significant history of depression appears to be secondary to worsening suicidal ideation. Today no suicidal thoughts. She had an agree moment today but did no loose it.Affect flat labile. Orientation person place and time and situation. Thought content no delusions obsessions and phobias. Risk factors for suicidal ideation. Perceptions no hallucinations auditory visual or tactile. Thought process somewhat certain circumstantial and tangential at times. Concentration appears somewhat impaired but redirectable for observation and interview with the patient. Recent memory 1 out of 3. Remote memory is within normal for past events is relates to her history. Intelligence is average based on history and vocabulary Syntex grammar content. Judgment is poor for patient behaving history of wanting to kill herself. Insight fair as per understanding severity of illness and history of present illness. Nortriptyline 100 mg at bedtime for sleep Venlafaxine 75 mg XR at bedtime at bedtime Topamax 100 mg by mouth daily twice changed today Calace 100 mg po prn She has classic migraines on the right side post aneurysm and surgery. She's been on nortriptyline for number of years and will check a nortriptyline level as well as a hemoglobin A1c level which is 5.1 Venlafaxine has been shown to be effective and chronic pain patients/with anxiety and depression and has a minimal interaction with tricyclic antidepressants. Objective - Vital Signs Vital signs: Vital Signs Temp 97.7 F 08/18/18 05:13 Pulse 76 08/18/18 05:13 Resp 12 08/18/18 05:13 BP 123/82 08/18/18 05:13 Pulse Ox 98 08/15/18 06:44 - Labs CBC & Chem 7: 08/13/18 09:03 08/13/18 09:03
[2018-08-18] MEDS: LORazepam 1 MG TAB PO PRN (15:06)
[2018-08-18] MEDS: NORTRIPTYLINE 25 MG CAP PO SCH (20:36)
[2018-08-18] MEDS: TOPIRAMATE 100 MG TAB PO SCH (20:37)
[2018-08-18] MEDS: DOCUSATE 100 MG CAP PO PRN (20:41)
[2018-08-18] MEDS ORDERED: VENLAFAXINE HCL ER 75 MG CAP PO SCH (21:00)
[2018-08-19] MEDS: LEVOTHYROXINE 100 MCG TAB PO SCH (05:55)
[2018-08-19] MEDS: LIDOCAINE 5% PATCH TOPICAL SCH (08:33)
[2018-08-19] MEDS: TOPIRAMATE 100 MG TAB PO SCH ×2 (08:34→20:02)
[2018-08-19] MEDS: DOCUSATE 100 MG CAP PO PRN (08:34)
[2018-08-19] MEDS: NICOTINE 14MG/24HR PATCH TRANSDERM SCH (08:34)
[2018-08-19] MEDS: FUROSEMIDE 20 MG TAB PO SCH (08:34)
--- NOTE | 2018-08-19 12:22 | P.PN ---
Subjective Progress Note Date: 08/19/18 Principal diagnosis: Major depressive disorder, severe, with history of suicidal ideation Principal diagnosis: Major depressive disorder, severe, with history of suicidal ideation This 42-year-old female appears somewhat disheveled and appears older than stated age her speech is hesitant at times attitude and behaviors cooperative. Mood is depressed anxious irritable and hopelessness.Complaints of constipation. She also has right eye vision change with halo and like looking thru prisms. ? Mental status examination today: She does have some abnormal facial drooping due to post-aneurysm surgery and has mood instability. Her gait appears grossly normal as well as her station appears grossly normal. This is a 42-year -old female with a significant history of depression appears to be secondary to decrease suicidal ideation. Today no suicidal thoughts. She had an agree moment today but did no loose it.Affect flat labile. Orientation person place and time and situation. Thought content no delusions obsessions and phobias. Risk factors for suicidal ideation. Perceptions no hallucinations auditory visual or tactile. Thought process somewhat certain circumstantial and tangential at times. Concentration appears somewhat impaired but redirectable for observation and interview with the patient. Recent memory 3 out of 3. Remote memory is within normal for past events is relates to her history. Intelligence is average based on history and vocabulary Syntex grammar content. Judgment is improving for patient behaving history of wanting to kill herself but not today. Insight fair as per understanding severity of illness and history of present illness. Recent argument with LTP and able to stand up for herself of wether she wanted to be with a woman and it made the patient very upset. Nortriptyline 100 mg at bedtime for sleep Venlafaxine 150 mg XR at bedtime at bedtime change today Topamax 100 mg by mouth daily bid changed Calace 100 mg po prn She has classic migraines on the right side post aneurysm and surgery. She's been on nortriptyline for number of years and a nortriptyline level (80 ng.ml) as well as a hemoglobin A1c level which is 5.1 Venlafaxine has been shown to be effective and chronic pain patients/with anxiety and depression and has a minimal interaction with tricyclic antidepressants. Objective - Vital Signs Vital signs: Vital Signs Temp 98.2 F 08/19/18 06:41 Pulse 90 08/19/18 06:41 Resp 16 08/19/18 06:41 BP 123/75 08/19/18 06:41 Pulse Ox 98 08/15/18 06:44 - Labs CBC & Chem 7: 08/13/18 09:03 08/13/18 09:03
[2018-08-19] MEDS: LORazepam 1 MG TAB PO PRN (14:00)
[2018-08-19] MEDS: NORTRIPTYLINE 25 MG CAP PO SCH (20:02)
[2018-08-19] MEDS: VENLAFAXINE HCL ER 150 MG CAP PO SCH (20:03)
[2018-08-19] MEDS: traMADol 50 MG TAB PO PRN (21:19)
[2018-08-20] MEDS: LEVOTHYROXINE 100 MCG TAB PO SCH (06:05)
[2018-08-20] MEDS: FUROSEMIDE 20 MG TAB PO SCH (07:50)
[2018-08-20] MEDS: NICOTINE 14MG/24HR PATCH TRANSDERM SCH (07:50)
[2018-08-20] MEDS: TOPIRAMATE 100 MG TAB PO SCH ×2 (07:50→20:46)
[2018-08-20] MEDS: traMADol 50 MG TAB PO PRN ×2 (07:53→20:47)
[2018-08-20] MEDS: DOCUSATE 100 MG CAP PO PRN (07:54)
[2018-08-20] MEDS: LIDOCAINE 5% PATCH TOPICAL SCH (08:47)
--- NOTE | 2018-08-20 12:25 | P.PN ---
Progress Note - Text Interval history: The patient is found in the [facility] she follows me to an interview room. She reports that her mood is stabilizing. She states that she was admitted for suicidal ideation and she had superficially cut her upper extremity. She states that she has had an irritable component to her depression but she feels that she is making better choices. She is able to sleep appetite stable. We reviewed her psychotropic medications and she has no questions regarding them. She feels that she is doing better and hopes to be discharged Wednesday. Mental status exam: The patient is alert she is dressed in her own clothing hygiene grooming adequate. Speech is fluent spontaneous nonpressured. She indicates her mood is improving she denies having any suicidal ideation intent or plan. She is reporting no homicidal ideation intent or plan. She reports no auditory or visual hallucinations or any specific delusions and there is no observed evidence of psychosis. Thought process is linear she demonstrates no tangential thinking loose associations or flight of ideas. Insight and judgment improving. She is oriented to person place and date. Plan: The patient will continue on her current psychotropic medications. We will continue to monitor her for safety and encourage full participation in the milieu. Vital signs reviewed.
[2018-08-20] MEDS: LORazepam 1 MG TAB PO PRN (16:36)
[2018-08-20] MEDS: VENLAFAXINE HCL ER 150 MG CAP PO SCH (20:46)
[2018-08-20] MEDS: NORTRIPTYLINE 25 MG CAP PO SCH (20:46)
[2018-08-21] MEDS: LEVOTHYROXINE 100 MCG TAB PO SCH (06:13)
[2018-08-21 06:46] VITALS: TEMP 97.7
[2018-08-21] MEDS: LIDOCAINE 5% PATCH TOPICAL SCH (07:30)
[2018-08-21] MEDS: FUROSEMIDE 20 MG TAB PO SCH (07:31)
[2018-08-21] MEDS: TOPIRAMATE 100 MG TAB PO SCH ×2 (07:31→20:15)
[2018-08-21] MEDS: NICOTINE 14MG/24HR PATCH TRANSDERM SCH (07:31)
--- NOTE | 2018-08-21 10:41 | P.PN ---
Progress Note - Text Interval history: The patient is found in the hallway she follows me to an interview room. She states that her mood is good she feels that she is chronically stabilizing. She states spontaneously "I'm keeping my anger under control". She does not feel depressed. Anxiety is controlled. She states that she slept well last night appetite is stable she is attending groups. We reviewed her psychotropic medication she has no questions regarding those. She is anticipating a discharge tomorrow. She has been compliant with group attendance. Mental status exam: The patient is an overweight female appearing her stated age. Hygiene and grooming are adequate. She has several tattoos visible. She is wearing a homemade shirt but identifies her as the "cat lady". She denies having any suicidal or homicidal ideation intent or plan. She is reporting no auditory or visual hallucinations or any specific delusions. She demonstrates no observed evidence of psychosis. She does not appear hypomanic or manic. Insight and judgment improving. She is oriented to person place and date. She demonstrates no verbal or physical aggressiveness. Affect is appropriately expressive and appears euthymic this morning. Plan: The patient will continue on her current psychotropic medications. She appears to be clinically stabilizing. We will monitor her for safety and continue to encourage her full participation in the milieu.
[2018-08-21] MEDS: traMADol 50 MG TAB PO PRN ×2 (10:46→20:15)
[2018-08-21] MEDS: DOCUSATE 100 MG CAP PO PRN (10:48)
[2018-08-21] MEDS: VENLAFAXINE HCL ER 150 MG CAP PO SCH (20:15)
[2018-08-21] MEDS: NORTRIPTYLINE 25 MG CAP PO SCH (20:15)
[2018-08-22] MEDS: LEVOTHYROXINE 100 MCG TAB PO SCH (06:13)
[2018-08-22 06:55] VITALS: BP 121/77; PULSE 66; RESP 14
[2018-08-22] MEDS: LIDOCAINE 5% PATCH TOPICAL SCH (08:37)
[2018-08-22] MEDS: TOPIRAMATE 100 MG TAB PO SCH (08:39)
[2018-08-22] MEDS: NICOTINE 14MG/24HR PATCH TRANSDERM SCH (08:39)
[2018-08-22] MEDS: DOCUSATE 100 MG CAP PO PRN (08:39)
[2018-08-22] MEDS: FUROSEMIDE 20 MG TAB PO SCH (08:39)
[2018-08-22] MEDS: traMADol 50 MG TAB PO PRN (08:39)
--- NOTE | 2018-08-22 13:16 | P.DS ---
Providers Date of admission: 08/12/18 19:25 Expected date of discharge: 08/22/18 Attending physician: Marco Jennings DO Consults: 08/12/18 19:32 Consult Physician Routine Consulting Provider: Cristian Physician Consult Reason/Comments: H & P and medical care Do you want consulting provider notified?: Yes Primary care physician: Agustin Garcia - Discharge Diagnosis(es) (1) Depression Current Visit: Yes Status: Acute Priority: Low Hospital Course: Identifying Information: [42-year-old female presents emergency Department chief complaint of depression, suicidal ideation. Patient states she 's having worsening depression last few weeks. Patient states it's just been building up on her and states that she wanted to hurt herself today. Patient states that she took a kitchen knife to her left wrist. She is unsure when her last tetanus was. She states there are abrasions noted to the wrist denies any other injuries. Patient denies any drug or alcohol abuse. Denies any other physical complaints.] Past Medical History Past Medical History: Hypertension, Thyroid Disorder Additional Past Medical History / Comment(s): brain aneurism History of Any Multi-Drug Resistant Organisms: MRSA Date of last positivie culture/infection: 2007 MDRO Source:: face Past Surgical History: Section, Orthopedic Surgery Additional Past Surgical History / Comment(s): rt sided brain coil and stent, knee x3 Past Psychological History: Anxiety, Bipolar, Depression Smoking Status: Current every day smoker Past Alcohol Use History: Occasional Past Drug Use History: Marijuana. Chief Complaint and Reason for Hospitalization: [Depression and suicidal ideation] Course of Treatment: [She will discontinue her Cymbalta when she was admitted because her pain and depression are still not in control. She was started on venlafaxine and titrated to 150 mg by mouth daily at bedtime. Her T3-T4 was evaluated and found to be respectively 120 g per mL and T4 was 12 ng per mL. He was evaluated due to her TSH elevated and she was on thyroid supplementation. She was evaluated by medicine and appreciated input into the case. Urine drug screen at time of admission revealed tricyclic antidepressants which she was taking and tetrahydrocannabinol. Disc discussed in detail that this is probably not appropriate use and is currently not indicated for her chronic pain condition. She did well in work and milieu therapeutic environment, integrated into groups and recreational therapy.] Physical/Medical Condition on Discharge:[ Stable] Mental status examination: This is a 42-year-old female who looks her stated age neatly dressed and groomed today. She is oriented person place time and to the situation to why she came to the hospital. She is 2 out of 10 depressed today and anxiety 2 out of 10. She has been able to take Lidoderm patch and decrease her back pain. She has no perception difficulties she does not admit to auditory visual hallucinations. She has a full [employer] fund of knowledge today without any limitations. She is able to sleep at night with her nortriptyline, her Topamax has helped her stabilize her mood and her headaches. Functional Condition on Discharge: [Average intellect] Discharge Medications: [Discharge medications indicated below] Number of Routinely Scheduled Antipsychotic Medication(s) Prescribed: [Minus psychotic's written] Appropriate Justification for discharging the Patient on Two or More Antipsychotic Medications: [Minus psychotic's written] Discharge Diagnosis: [Major depressive disorder recurrent and currently stabilizing and discharge without suicidal or homicidal ideation] Risk Factors: [Supportive environment] Recommendations/Follow-up/Aftercare: [She needs a follow-up with her primary care physician as well as seeking therapy and continue on her medications as outlined below.] Plan - Discharge Summary Discharge Rx Participant: Yes New Discharge Prescriptions: New Furosemide [Lasix] 20 mg PO DAILY tab Levothyroxine Sodium [Synthroid] 100 mcg PO DAILY@0630 tab Lidocaine 5% Patch [Lidoderm 5% Patch] 1 patch TOPICAL DAILY #30 patch Nicotine 14Mg/24Hr Patch [Habitrol] 1 patch TRANSDERM DAILY #30 patch Topiramate [Topamax] 100 mg PO BID #60 tab Venlafaxine HCl ER [Effexor XR] 150 mg PO 1999 #30 cap.er.24h Continue Furosemide [Lasix] 60 mg PO DAILY traMADol HCL [Ultram] 50 mg PO QID PRN PRN Reason: Pain Levothyroxine Sodium [Synthroid] 75 mcg PO DAILY Nortriptyline [Pamelor] 100 mg PO HS Discontinued DULoxetine HCL [Cymbalta] 60 mg PO DAILY Discharge Medication List Furosemide [Lasix] 60 mg PO DAILY 08/12/18 [History] Levothyroxine Sodium [Synthroid] 75 mcg PO DAILY 08/12/18 [History] Nortriptyline [Pamelor] 100 mg PO HS 08/12/18 [History] traMADol HCL [Ultram] 50 mg PO QID PRN 08/12/18 [History] Furosemide [Lasix] 20 mg PO DAILY tab 08/22/18 [Rx] Levothyroxine Sodium [Synthroid] 100 mcg PO DAILY@0630 tab 08/22/18 [Rx] Lidocaine 5% Patch [Lidoderm 5% Patch] 1 patch TOPICAL DAILY #30 patch 08/22/18 [Rx] Nicotine 14Mg/24Hr Patch [Habitrol] 1 patch TRANSDERM DAILY #30 patch 08/22/18 [ Rx] Topiramate [Topamax] 100 mg PO BID #60 tab 08/22/18 [Rx] Venlafaxine HCl ER [Effexor XR] 150 mg PO 2000 #30 cap.er.24h 08/22/18 [Rx] Follow up Appointment(s)/Referral(s): [facility] [Outside] - 1-2 Days (Walk In @ [facility] Wednesday 8:30 - 3pm Wednesday 10:30 - 5 pm Wednesday 8:30 - 3pm) Agustin Garcia MD [Primary Care Provider] - 1-2 days Activity/Diet/Wound Care/Special Instructions: Repeat TSH in 4-6 weeks with your family physician. Discharge Disposition: HOME SELF-CARE
== END 2018-08-22 14:58 | disposition home or self-care (01) | DRG 885 ==
LOC: EC 16:23 → 3MHU 19:25
PROVIDERS: ADMIT Psychiatry & Neurology Psychiatry; ATTEND Psychiatry & Neurology Psychiatry
DX: F33.2 Major depressive disorder, recurrent severe without psychotic features (principal); E03.9 Hypothyroidism, unspecified; F17.200 Nicotine dependence, unspecified, uncomplicated; F41.9 Anxiety disorder, unspecified; G43.909 Migraine, unspecified, not intractable, without status migrainosus; G89.29 Other chronic pain; I10 Essential (primary) hypertension; K59.00 Constipation, unspecified; R29.810 Facial weakness; S60.819A Abrasion of unspecified wrist, initial encounter; X78.1XXA Intentional self-harm by knife, initial encounter; Z79.890 Hormone replacement therapy; Z79.899 Other long term (current) drug therapy; Z86.79 Personal history of other diseases of the circulatory system; Z62.810 Personal history of physical and sexual abuse in childhood; Z86.73 Personal history of transient ischemic attack (TIA), and cerebral infarction without residual deficits; M47.9 Spondylosis, unspecified
CPT/HCPCS: 80053; 80306; 80335; 81025; 82075; 82248; 83036; 84436; 84443; 84480; 85025; 90471; 90715; 99285

== ENCOUNTER → 2019-01-17 | Outpatient (CLI) | payer MEDICARE, OTHER ==
[2019-01-17 14:10] VITALS: BP 119/87; PULSE 75; RESP 18; TEMP 97.3; BMI 32.9
--- NOTE | 2019-01-17 15:00 | P.HPOB ---
History of Present Illness H&P Date: 01/17/19 Chief Complaint: The patient is here for her routine gynecologic exam. This is a 43-year-old with an LMP of 12/14/2018. The patient states her periods are fairly regular but seem to be fluctuating by a few days each month. She is status post tubal sterilization. She is requesting STD screening since she has had a new sexual partner during the past year. She is without gynecologic complaints. Review of Systems The patient has lost 27 pounds over the last 1 1/2 years. She denies respiratory or cardiac problems. G.I.: recent nausea during the past 1 1/2 days. Past Medical History Past Medical History: Hypertension, Thyroid Disorder (Hypothyroid) Additional Past Medical History / Comment(s): brain aneurism status post stent placement. Headaches. Degenerative disc disease. 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 History of Any Multi-Drug Resistant Organisms: MRSA Date of last positivie culture/infection: 2007 MDRO Source:: face Past Surgical History: Section (x3), Orthopedic Surgery, Tubal Ligation Additional Past Surgical History / Comment(s): rt sided brain coil and stent, knee x3 Past Psychological History: Depression Smoking Status: Current every day smoker (5 cigarettes per day) Past Alcohol Use History: Occasional (1-2 per month) Past Drug Use History: Marijuana Additional History: She is single and has been with her boyfriend since 2018. She lives with him. She is disabled. - Past Family History Father Family Medical History: Diabetes Mellitus Additional Family Medical History / Comment(s): Grandmother had leukemia. Medications and Allergies Home Medications Medication Instructions Recorded Confirmed Type Nortriptyline [Pamelor] 100 mg PO HS 08/12/18 01/17/19 History Furosemide [Lasix] 20 mg PO DAILY tab 08/22/18 01/17/19 Rx Levothyroxine Sodium [Synthroid] 100 mcg PO DAILY@0630 tab 08/22/18 01/17/19 Rx Nicotine 14Mg/24Hr Patch [Habitrol] 1 patch TRANSDERM DAILY #30 patch 08/22/18 01/17/19 Rx Topiramate [Topamax] 100 mg PO BID #60 tab 08/22/18 01/17/19 Rx Venlafaxine HCl ER [Effexor XR] 150 mg PO 1999 #30 cap.er.24h 08/22/18 01/17/19 Rx HYDROcodone/APAP 10-325MG [[place] 1 tab PO Q6HR PRN 01/17/19 01/17/19 History 10-325] Allergies Allergy/AdvReac Type Severity Reaction Status Date / Time No Known Allergies Allergy Verified 01/17/19 14:03 Exam Vital Signs Temp Pulse Resp BP Pulse Ox 01/17/19 14:07 97.3 F L 75 18 119/87 99 Intake and Output 01/16/19 01/17/19 01/17/19 22:59 06:59 14:59 Other: Weight 81.647 kg Height 5'2", weight 180 pounds, BMI 32.9. This is a well-developed well-nourished white female who is alert and oriented times 3 in no acute distress. HEENT: Within normal limits. NECK: Supple without mass or thyromegaly. CHEST AND LUNGS: Clear to auscultation. HEART: Regular rate and rhythm. BREASTS: Are without mass or discharge. AXILLARY EXAM: Negative for adenopathy. BACK: Negative for CVA tenderness. ABDOMEN: Soft, nontender, without palpable masses. PELVIC EXAM: Normal external genitalia. Cervix and vagina appear normal. There is no unusual discharge. There is no cervical motion tenderness. There is no evidence of prolapse. The uterus is midposition, nongravid size and nontender. There are no palpable adnexal masses or tenderness. RECTAL EXAM: there are prominent external hemorrhoids that are nontender and appear noninflamed. Rectal exam is negative for mass or tenderness and is positive for occult blood. EXTREMITIES: Nontender. IMPRESSION: 1. 43-year-old female status post tubal sterilization with normal gynecologic exam. 2. Hemoccult positive testing from rectal exam. The patient states she has had recent occasional blood with bowel movements which she attributes to her hemorrhoids. 3. History of STDs. The patient is requesting STD screening. PLAN: 1. Pap smear was deferred since she had a negative one on 06/16/2017. 2. Self breast awareness was discussed with the patient. 3. The patient is scheduled for screening mammogram in January. The order slip was given to the patient for this. 4. GC and chlamydia testing from the cervix has been obtained. She will also be sent for blood tests which will include HIV, RPR, hepatitis B surface antigen , and hepatitis C antibody. 5. STD prevention was discussed. I have stressed the importance of limiting sexual partners and to use condoms if you sexually active. 6. Fecal occult blood test kits were given to the patient. She will do testing from 2 consecutive bowel movements. The order slip for this was also given the patient so she can return this to the lab for developing. She will do this after she has kept her stools soft. If she continues to have positive Hemoccult testing, we will plan on having her do a colonoscopy. This plan was discussed with the patient. 7. She will return one year.
[2019-01-18 01:54] LABS: HIV 1 AB Non-Reactive (Non-Reactive); HIV AB P24 Non-Reactive (Non-Reactive); HIV P24 AG Non-Reactive (Non-Reactive)
[2019-01-18 04:20] LABS: Hepatitis C IgG Antibody Non-Reactive (Non-Reactive)
== END ==
LOC: WWCWWP 13:53
PROVIDERS: ATTEND Obstetrics & Gynecology
DX: Z11.3 Encounter for screening for infections with a predominantly sexual mode of transmission (principal)
CPT/HCPCS: 36415; 86780; 86803; 87340; 87390

== ENCOUNTER → 2019-01-19 | Outpatient (CLI) | payer MEDICARE, OTHER ==
[2019-01-19 13:45] LABS: Appearance,Urine Cloudy (Clear); Bilirubin,Urine Negative (Negative); Blood,Urine Moderate (Negative); Color,Urine Yellow; Glucose,Urine (UA) Negative (Negative); Ketones,Urine 2+ (Negative); Leukocyte Esterase,Urine Large (Negative); Mucus,Urine Many /hpf; Nitrite,Urine Negative (Negative); PH, Urine 6.5 (5.0-8.0); Protein,Urine 1+ (Negative); RBC,Urine 87 /hpf (0-5); Specific Gravity,Urine 1.019 (1.001-1.035); Squamous Epithelial Cell,Urine 14 /hpf (0-4); Urobilinogen,Urine <2.0 mg/dL (<2.0); WBC,Urine 23 /hpf (0-5)
[2019-01-19 13:50] LABS: HCT 37.3 % (34.0-46.0); HGB 12.8 gm/dL (11.4-16.0); MCH 34.2 pg (25.0-35.0); MCHC 34.3 g/dL (31.0-37.0); MCV 99.7 fL (80.0-100.0); Mean Platelet Volume 6.4; Platelet Count 246 k/uL (150-450); RBC 3.74 m/uL (3.80-5.40); RDW 13.5 % (11.5-15.5); WBC 4.8 k/uL (3.8-10.6)
[2019-01-19 19:27] LABS: Albumin 4.3 g/dL (3.80-4.90); Albumin/Globulin Ratio 2.05 (1.60-3.17); Anion Gap 7.5 mmol/L (4.00-12.00); Calcium 8.9 mg/dL (8.7-10.3); Carbon Dioxide 20.5 mmol/L (21.6-31.8); Globulin 2.1 g/dL (1.6-3.3); LDL Cholesterol,Calculated 98.2 mg/dL (0.0-131.0); Total Bilirubin 0.4 mg/dL (0.3-1.2); Total Protein 6.4 g/dL (6.2-8.2); VLDL Calculation 17.8 mg/dL (5.00-40.00)
[2019-01-19 19:35] LABS: T4, Free (Free Thyroxine) 1.4 ng/dL (0.80-1.80)
[2019-01-19 21:00] LABS: Hemoglobin A1C 4.9 % (4.0-6.0)
== END | disposition home or self-care (01) ==
LOC: LABWHC1 12:58
PROVIDERS: ATTEND Psychiatry & Neurology Psychiatry
DX: I11.9 Hypertensive heart disease without heart failure (principal); E03.9 Hypothyroidism, unspecified; K21.0 Gastro-esophageal reflux disease with esophagitis; R73.9 Hyperglycemia, unspecified; R35.0 Frequency of micturition; Z79.899 Other long term (current) drug therapy
CPT/HCPCS: 84439; 80061; 80053; 84443; 85027; 81001; 83036; 36415; G0480; 80335

== ENCOUNTER → 2019-02-01 | Outpatient (CLI) | payer MEDICARE, OTHER ==
--- NOTE | 2019-02-02 11:23 | MM ---
Reason for exam: screening (asymptomatic). Last mammogram was performed 1 year and 8 months ago. Physical Findings: A clinical breast exam by your physician is recommended on an annual basis and results should be correlated with mammographic findings. MG 3D Screening Mammo W/Cad Bilateral CC and MLO view(s) were taken. Prior study comparison: June 16, 2017, bilateral MG 3d screening mammo w/cad. September 17, 2015, bilateral MG screening mammo w CAD. The breast tissue is heterogeneously dense. This may lower the sensitivity of mammography. No suspicious abnormality in the left breast. Right lower inner quadrant focal asymmetry middle depth. ASSESSMENT: Incomplete: need additional imaging evaluation, BI-RAD 0 RECOMMENDATION: Special view mammogram of the right breast. If lesion persists on supplemental views, image directed ultrasound is recommended. [facility] will attempt to contact patient to return for supplemental views and ultrasound if indicated.
== END | disposition home or self-care (01) ==
LOC: RADMAMWWP 14:39
PROVIDERS: ATTEND Obstetrics & Gynecology
DX: Z12.31 Encounter for screening mammogram for malignant neoplasm of breast (principal)
CPT/HCPCS: 77063; 77067

== ENCOUNTER → 2019-02-13 | Outpatient (CLI) | payer MEDICARE, OTHER ==
--- NOTE | 2019-02-13 10:04 | MM ---
Reason for exam: additional evaluation requested from abnormal screening. Last mammogram was performed less than 1 month ago. Physical Findings: Nurse did not find any significant physical abnormalities on exam. MG 3D Work Up W/Cad RT Spot compression CC, spot compression MLO, and ML view(s) were taken of the right breast. Prior study comparison: February 01, 2019, bilateral MG 3d screening mammo w/cad. June 16, 2017, bilateral MG 3d screening mammo w/cad. There are scattered fibroglandular densities. The lower inner quadrant focal asymmetry appears to disperse on 3D additional views. Precautionary 6 month follow up recommended. These results were verbally communicated with the patient and result sheet given to the patient on 02/13/19. ASSESSMENT: Probably benign, BI-RAD 3 RECOMMENDATION: Follow-up diagnostic mammogram of the right breast in 6 months.
--- NOTE | 2019-02-15 14:08 | P.PN ---
Progress Note - Text Progress Note Date: 02/15/19 Screening mammogram on 02/01/2019 recommended an additional view of the right breast. A right-sided follow-up was done on 02/13/2019 which was felt to be probably benign. Follow-up diagnostic mammogram of the right breast was recommended in 6 months. The order slip was mailed to the patient for this.
== END | disposition home or self-care (01) ==
LOC: RADMAMWWP 09:05
PROVIDERS: ATTEND Obstetrics & Gynecology
DX: R92.8 Other abnormal and inconclusive findings on diagnostic imaging of breast (principal)
CPT/HCPCS: 77065; G0279; 77061

== ENCOUNTER 2019-04-05 23:08 | Emergency (ER) | payer MEDICARE, OTHER ==
[2019-04-05] MEDS ORDERED: DICYCLOMINE 20 MG TAB PO STA (23:37)
--- NOTE | 2019-04-05 23:45 | ED ---
Nausea/Vomiting/Diarrhea HPI - General Chief complaint: Nausea/Vomiting/Diarrhea Stated complaint: Diarrhea Time Seen by Provider: 04/05/19 23:22 Source: patient Mode of arrival: ambulatory Limitations: no limitations - History of Present Illness Initial comments: This is a 43-year-old female who presents emergent department for diarrhea. The patient states that she's had watery diarrhea for the last 4 days. She states she goes approximately 10 times a day anytime that she urinates. She states that it is watery. There is no blood. She states that she also has some abdominal cramping and some gas symptoms. She states that she's also had some bowel incontinence throughout the evening. She denies any back pain. No recent trauma. No dysuria or hematuria. No fevers or chills. She does admit to a little bit of nausea however no vomiting. She denies any sick contacts. The patient states that she fears that it could be from her Abilify which she started approximately 1-1/2 weeks ago. She states that she's here because of the incontinence and is concerned about the cause of the diarrhea. She denies any other acute complaints and states that she does not want any blood work drawn. - Related Data Home Medications Medication Instructions Recorded Confirmed Nortriptyline [Pamelor] 100 mg PO HS 08/12/18 04/05/19 HYDROcodone/APAP 10-325MG [[place] 1 tab PO Q6HR PRN 01/17/19 04/05/19 10-325] Butalb/APAP/Caff 50-325-40Mg 1 tab PO DAILY PRN 04/05/19 04/05/19 [Fioricet 50-325-40] Ibuprofen [Motrin] 800 mg PO Q12HR 04/05/19 04/05/19 Previous Rx's Medication Instructions Recorded Furosemide [Lasix] 20 mg PO DAILY tab 08/22/18 Levothyroxine Sodium [Synthroid] 100 mcg PO DAILY@0630 tab 08/22/18 Nicotine 14Mg/24Hr Patch [Habitrol] 1 patch TRANSDERM DAILY #30 patch 08/22/18 Topiramate [Topamax] 100 mg PO BID #60 tab 08/22/18 Venlafaxine HCl ER [Effexor XR] 150 mg PO 2000 #30 cap.er.24h 08/22/18 Dicyclomine [Bentyl] 20 mg PO QID PRN #20 tablet 04/06/19 Allergies Allergy/AdvReac Type Severity Reaction Status Date / Time No Known Allergies Allergy Verified 04/05/19 23:28 Review of Systems ROS Statement: Those systems with pertinent positive or pertinent negative responses have been documented in the HPI. ROS Other: All systems not noted in ROS Statement are negative. Past Medical History Past Medical History: Hypertension, Thyroid Disorder Additional Past Medical History / Comment(s): brain aneurism status post stent placement. Headaches. Degenerative disc disease. 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 History of Any Multi-Drug Resistant Organisms: MRSA Date of last positivie culture/infection: 2007 MDRO Source:: face Past Surgical History: Section, Orthopedic Surgery, Tubal Ligation Additional Past Surgical History / Comment(s): rt sided brain coil and stent, knee x3 Past Psychological History: Depression Smoking Status: Current some day smoker Past Alcohol Use History: Occasional Past Drug Use History: Marijuana - Past Family History Father Family Medical History: Diabetes Mellitus Additional Family Medical History / Comment(s): Grandmother had leukemia. General Exam - General Exam Comments Initial Comments: Constitutional: Awake alert Appears comfortable Head: Normocephalic atraumatic Eyes: no conjunctival injection No scleral icterus EOMI ENT: Oral mucosa is moist Neck: No JVD Supple Heart: Regular rate rhythm normal S1-S2 no murmurs Lungs: Clear to auscultation bilaterally No wheezing No rales Abdomen: Soft nondistended nontender Extremities: Non edematous DP pulses intact Radial pulses intact Neuro: A&Ox3 No focal neurologic deficits Psych: Appropriate mood and affect Limitations: no limitations Course Vital Signs 04/05/19 23:12 Temperature 98.3 F Pulse Rate 71 Respiratory 16 Rate Blood Pressure 97/67 O2 Sat by Pulse 99 Oximetry Medical Decision Making - Medical Decision Making Is a 43-year-old female who presents emergency department for diarrhea. The patient was examined at bedside and did not show any signs of dehydration. Vital signs appeared normal. The patient had moist oromucosa. She had a benign abdominal examination. The patient stated that she did not want any blood work and was just concerned that the diarrhea may be from her medications. I did look up Abilify to see if this would cause diarrhea and stated that it was, in pediatrics however not adults. I stated that most commonly this would be viral related however we could send off stool studies to evaluate for other causes and the patient was able to leave a stool sample. She was given until the emergency department with mild improvement in her symptoms. She will be sent home with this medication as well. She was instructed to call the ER for results in the next couple of days of somewhat has not called. Otherwise needs close follow-up with her primary doctor. Can return if she has worsening or changing symptoms. All questions answered. Disposition Clinical Impression: Diarrhea Disposition: HOME SELF-CARE Condition: Stable Instructions (If sedation given, give patient instructions): Acute Diarrhea (ED) Prescriptions: Dicyclomine [Bentyl] 20 mg PO QID PRN #20 tablet PRN Reason: Abdominal Cramping Is patient prescribed a controlled substance at d/c from ED?: No Referrals: Agustin Garcia MD [Primary Care Provider] - 1-2 days
[2019-04-06 00:29] VITALS: BP 133/73; PULSE 79; RESP 18; TEMP 98
== END 2019-04-06 00:29 | disposition home or self-care (01) ==
LOC: EC 23:08
DX: R19.7 Diarrhea, unspecified (principal); R25.2 Cramp and spasm; R15.9 Full incontinence of feces; F32.9 Major depressive disorder, single episode, unspecified; F17.200 Nicotine dependence, unspecified, uncomplicated; Z79.1 Long term (current) use of non-steroidal anti-inflammatories (NSAID); Z79.899 Other long term (current) drug therapy; Z86.14 Personal history of Methicillin resistant Staphylococcus aureus infection; Z86.69 Personal history of other diseases of the nervous system and sense organs; Z95.828 Presence of other vascular implants and grafts; Z87.39 Personal history of other diseases of the musculoskeletal system and connective tissue
CPT/HCPCS: 83630; 87045; 87046; 87328; 87329; 99284

== ENCOUNTER → 2019-04-11 | Outpatient (CLI) | payer MEDICARE, OTHER ==
[2019-04-11 11:42] LABS: Basophils % (A) 0 %; Eosinophils % (A) 0 %; HCT 42.4 % (34.0-46.0); HGB 13.7 gm/dL (11.4-16.0); Lymphocytes # (A) 1.6 k/uL (1.0-4.8); Lymphocytes % (A) 25 %; MCH 31.4 pg (25.0-35.0); MCHC 32.2 g/dL (31.0-37.0); MCV 97.6 fL (80.0-100.0); Mean Platelet Volume 7.1; Monocytes # (A) 0.4 k/uL (0-1.0); Monocytes % (A) 6 %; Neutrophils # (A) 4.3 k/uL (1.3-7.7); Neutrophils % (A) 67 %; Platelet Count 305 k/uL (150-450); RBC 4.35 m/uL (3.80-5.40); RDW 13.9 % (11.5-15.5); WBC 6.4 k/uL (3.8-10.6)
[2019-04-11 18:50] LABS: Albumin 4.2 g/dL (3.80-4.90); Albumin/Globulin Ratio 2.1 (1.60-3.17); Anion Gap 7.4 mmol/L (4.00-12.00); Calcium 8.9 mg/dL (8.7-10.3); Carbon Dioxide 20.6 mmol/L (21.6-31.8); LDL Cholesterol,Calculated 96.8 mg/dL (0.0-131.0); Potassium 4.1 mmol/L (3.5-5.5); Total Bilirubin 0.2 mg/dL (0.2-1.2); Total Protein 6.2 g/dL (6.2-8.2); VLDL Calculation 16.2 mg/dL (5.00-40.00)
[2019-04-11 18:57] LABS: T4, Free (Free Thyroxine) 1.2 ng/dL (0.80-1.80)
[2019-04-11 20:53] LABS: Hemoglobin A1C 5.3 % (4.0-6.0)
== END | disposition home or self-care (01) ==
LOC: LABWHC1 10:52
PROVIDERS: ATTEND Physician Assistant
DX: F33.2 Major depressive disorder, recurrent severe without psychotic features (principal); Z79.899 Other long term (current) drug therapy
CPT/HCPCS: 36415; 80053; 80061; 80335; 83036; 84439; 84443; 85025

== ENCOUNTER 2019-05-18 09:26 | Day surgery (SDC) | payer MEDICARE, OTHER ==
[2019-05-16 13:06] VITALS: BMI 30.6
[~2019-05-18 09:26] MED LIST: LACTATED RINGERS 1,000 ML IV SCH; LIDOCAINE 1% 20 ML VIAL (10MG/ML) FOR IV START INTRADERMA PRN
[2019-05-18 10:01] VITALS: TEMP 97
[2019-05-18] MEDS ORDERED: PROPOFOL 10 MG/ML 20 ML VIAL IV ONE (10:18)
[2019-05-18] MEDS ORDERED: LIDOCAINE 1% INJ 10MG/ML (20 ML MDV) ONE (10:18)
[2019-05-18] MEDS ORDERED: IV FLUID CONTINUATION 1,000 ML IV ONE (10:48)
[2019-05-18 10:51] VITALS: RESP 18
--- NOTE | 2019-05-18 10:57 | P.PCN ---
Date of Procedure: 05/18/19 Procedure(s) Performed: Procedure: Colonoscopy and biopsy. Preoperative diagnosis: Change in bowel habits. Postoperative diagnosis: 1. Exam of the colon and terminal ileum within normal limits. 2. Biopsies obtained from the terminal ileum and right colon. Preparation: HalfLytely prep. Sedation: Was provided by anesthesia. Brief clinical history: The patient is a 43-year-old female who was evaluated in the office earlier this month because of recent onset of diarrhea and alternating bowel habits as well as abdominal pain and bloating. She reported up to 10 bowel movements daily. At her age, I scheduled this evaluation to rule out with confidence neoplasia or inflammatory bowel disease especially since she had no prior colonoscopy. Procedure: With the patient on her left lateral decubitus position and after informed consent and adequate sedation, the perianal area was inspected and it did not show any fissures or fistulas. There were no masses felt on digital rectal examination. The Olympus CFH 190L video colonoscope was then inserted in the rectum and the usual fashion and advanced to the cecum. I intubated the ileocecal valve and examined the terminal ileum. Terminal ileum and colon appeared healthy with no edema, erythema, friability, ulceration, exudation or spontaneous bleeding. No polyps or tumors were seen or any obvious diverticular disease or other pathology. I obtained biopsies from the terminal ileum and right colon then I retroflexed the endoscope in the rectum before the endoscope was withdrawn. The patient tolerated the procedure well. Plan: The patient was reassured. Will await biopsy results and make further plans based on her course and biopsy results. We will keep you updated on her progress.
[2019-05-18 11:09] VITALS: BP 105/71; PULSE 75
== END 2019-05-18 11:47 | disposition home or self-care (01) ==
LOC: ORWHC2ENDO 09:26
DX: K52.9 Noninfective gastroenteritis and colitis, unspecified (principal); K21.9 Gastro-esophageal reflux disease without esophagitis; I10 Essential (primary) hypertension; J44.9 Chronic obstructive pulmonary disease, unspecified; Z87.891 Personal history of nicotine dependence; E07.9 Disorder of thyroid, unspecified; Z79.890 Hormone replacement therapy; Z79.891 Long term (current) use of opiate analgesic; Z79.899 Other long term (current) drug therapy
CPT/HCPCS: 81025; 88305; 45380; J2001; J2704

== ENCOUNTER 2019-10-22 16:42 | Emergency (ER) | payer MEDICARE, OTHER ==
[2019-10-22 16:51] VITALS: RESP 18; TEMP 98.6
[2019-10-22] MEDS ORDERED: diphenhydrAMINE 50 MG/ML 1 ML VIAL IVP STA (16:56)
[2019-10-22] MEDS ORDERED: MORPHINE SULFATE 4 MG/ML SYRINGE IVP STA (16:56)
[2019-10-22] MEDS ORDERED: METOCLOPRAMIDE 5 MG/ML 2 ML VIAL IVP STA (16:56)
--- NOTE | 2019-10-22 16:58 | ED ---
General Adult HPI - General Chief complaint: Headache Stated complaint: headache Time Seen by Provider: 10/22/19 16:53 Source: patient, RN notes reviewed Mode of arrival: ambulatory Limitations: no limitations - History of Present Illness Initial comments: 43-year-old female presents to the emergency department for chief complaint of headache. Patient states she always has headaches but for the past month it has been much worse. States that for the past month that has been worsening somewhat progressively. States she has not followed up with her doctor. Patient states it is across her forehead. Denies alleviating or aggravating symptoms just states that it is continuously worsening.Patient has no other complaints at this time including shortness of breath, chest pain, abdominal pain, nausea or vomiting, or visual changes. - Related Data Home Medications Medication Instructions Recorded Confirmed Nortriptyline [Pamelor] 100 mg PO HS 08/12/18 05/18/19 HYDROcodone/APAP 10-325MG [[place] 1 tab PO Q6HR PRN 01/17/19 05/16/19 10-325] Butalb/APAP/Caff 50-325-40Mg 1 tab PO DAILY PRN 04/05/19 05/16/19 [Fioricet 50-325-40] Ibuprofen [Motrin] 800 mg PO Q12HR 04/05/19 05/18/19 Previous Rx's Medication Instructions Recorded Furosemide [Lasix] 20 mg PO DAILY tab 08/22/18 Levothyroxine Sodium [Synthroid] 100 mcg PO DAILY@0630 tab 08/22/18 Nicotine 14Mg/24Hr Patch [Habitrol] 1 patch TRANSDERM DAILY #30 patch 08/22/18 Venlafaxine HCl ER [Effexor XR] 150 mg PO 2000 #30 cap.er.24h 08/22/18 Dicyclomine [Bentyl] 20 mg PO QID PRN #20 tablet 04/06/19 Allergies Allergy/AdvReac Type Severity Reaction Status Date / Time No Known Allergies Allergy Verified 10/22/19 16:51 Review of Systems ROS Statement: Those systems with pertinent positive or pertinent negative responses have been documented in the HPI. ROS Other: All systems not noted in ROS Statement are negative. Past Medical History Past Medical History: GERD/Reflux, Hypertension, Thyroid Disorder Additional Past Medical History / Comment(s): hx. brain aneurysm status post stent placement. Headaches. DDD, frequent diarrhea History of Any Multi-Drug Resistant Organisms: MRSA Date of last positivie culture/infection: 2007 MDRO Source:: face Past Surgical History: Section, Orthopedic Surgery, Tubal Ligation Additional Past Surgical History / Comment(s): rt sided brain coil and stent, arthroscopy rightknee x2, left knee x1 Past Anesthesia/Blood Transfusion Reactions: No Reported Reaction Past Psychological History: Depression Smoking Status: Current every day smoker Past Alcohol Use History: Occasional Past Drug Use History: Marijuana - Past Family History Father Family Medical History: Diabetes Mellitus Additional Family Medical History / Comment(s): Grandmother had leukemia. General Exam Limitations: no limitations General appearance: alert, in no apparent distress Head exam: Present: atraumatic, normocephalic, normal inspection Eye exam: Present: normal appearance, PERRL, EOMI. Absent: scleral icterus, conjunctival injection, periorbital swelling ENT exam: Present: normal exam, mucous membranes moist Neck exam: Present: normal inspection, full ROM. Absent: tenderness, meningismus, lymphadenopathy Respiratory exam: Present: normal lung sounds bilaterally. Absent: respiratory distress, wheezes, rales, rhonchi, stridor Cardiovascular Exam: Present: regular rate, normal rhythm, normal heart sounds. Absent: systolic murmur, diastolic murmur, rubs, gallop, clicks Neurological exam: Present: alert, oriented X3, CN II-XII intact, normal gait, other (GCS 15) Psychiatric exam: Present: normal affect, normal mood Course Vital Signs 10/22/19 16:49 Temperature 98.6 F Pulse Rate 85 Respiratory 18 Rate Blood Pressure 133/85 O2 Sat by Pulse 98 Oximetry Medical Decision Making - Medical Decision Making HPI and physical exam as documented. No neurologic deficits. Patient's pain has been ongoing for [address] brain was obtained which showed no acute intracranial hemorrhage, mass effect, or midline shift. Postprocedural changes seen. CT angios was also obtained which showed postprocedural changes without evidence for recurrent aneurysm, or dissection or thrombus. Patient was given migraine cocktail and is feeling significantly better. She is resting comfortably when I am in the room. Patient can be discharged home. She does agree to follow up with her neurologist. Patient is aware she can return at any time for worsening symptoms. Disposition Clinical Impression: Headache Disposition: HOME SELF-CARE Condition: Good Instructions (If sedation given, give patient instructions): Acute Headache (ED) Additional Instructions: Please follow-up with your neurologist as soon as possible. Follow up with your primary care provider in one to 2 days as well. Return to the emergency department if you have worsening or recurrent symptoms. Is patient prescribed a controlled substance at d/c from ED?: No Referrals: Enzo Springer MD [Primary Care Provider] - 1-2 days Time of Disposition: 18:39
--- NOTE | 2019-10-22 18:04 | CT ---
EXAMINATION TYPE: CT brain wo con DATE OF EXAM: 10/22/2019 COMPARISON: MRA brain 06/29/2013 HISTORY: Headache. Hx aneurysm/coil. CT DLP: 1169 mGycm. Automated Exposure Control for Dose Reduction was Utilized. TECHNIQUE: CT scan of the head is performed without contrast. FINDINGS: There is metallic density in the distribution of the internal carotid artery on the right in the supraclinoid, distribution extending to the carotid siphon level. There is no acute intracran ial hemorrhage, mass effect, or midline shift identified. The ventricles and sulci are within normal limits in size. The globes are intact and the visualized sinuses are clear. IMPRESSION: No acute intracranial hemorrhage, mass effect, or midline shift is seen. Postprocedural changes.
--- NOTE | 2019-10-22 18:18 | CT ---
CT angiogram of the brain HISTORY: Headache Helical acquisition obtained through the brain during dynamic administration 100 cc [id number]-[id number]. Autom ated exposure control using dose reduction. DLP 887.6 mGycm. Three-dimensional reconstructions perfor med on an alternate workstation. Correlation CT brain same date, MRA brain 06/29/2013 There is expected normal enhancement of the posterior and anterior circulation. Artifact is present d ue to patient's postprocedural changes along the internal carotid artery on the right. There is no ev ident aneurysm, dissection, or embolus. IMPRESSION: Postprocedural changes, correlate with patient's procedural findings. No evident recurren t aneurysm.
[2019-10-22 19:06] VITALS: BP 118/91; PULSE 81
== END 2019-10-22 19:06 | disposition home or self-care (01) ==
LOC: EC 16:42
DX: R51 Headache (principal); F32.9 Major depressive disorder, single episode, unspecified; F17.200 Nicotine dependence, unspecified, uncomplicated; Z79.1 Long term (current) use of non-steroidal anti-inflammatories (NSAID); Z79.899 Other long term (current) drug therapy; Z86.14 Personal history of Methicillin resistant Staphylococcus aureus infection; Z87.39 Personal history of other diseases of the musculoskeletal system and connective tissue; Z86.69 Personal history of other diseases of the nervous system and sense organs; Z95.828 Presence of other vascular implants and grafts
CPT/HCPCS: 70496; 70450; 99283; 96374; 96375 ×2; J2270; J1200; J2765; Q9967

== ENCOUNTER 2019-11-08 12:20 | Emergency (ER) | payer MEDICARE, OTHER ==
--- NOTE | 2019-11-08 12:57 | ED ---
Female Urogenital HPI - General Chief complaint: Urogenital Stated complaint: Female Time Seen by Provider: 11/08/19 12:28 Source: patient Mode of arrival: ambulatory Limitations: no limitations - History of Present Illness Initial comments: Patient is a 43-year-old female presenting to emergency department with a chief complaint of possible STIs. Patient reports her boyfriend apparently noted that she has a foul odor, from her vagina. Supposedly is smelled "fishy". Although, patient denies any foul smells. The boyfriend also developed some penile discharge and was concerned the patient might have hit vaginal infection. Patient denies any symptoms such as itching burning or any discharge at this time. Patient denies any abdominal pain nausea vomiting. Denies any night sweats fevers or chills. Last Menstrual Period: 10/25/19 - Related Data Home Medications Medication Instructions Recorded Confirmed Nortriptyline [Pamelor] 100 mg PO HS 08/12/18 05/18/19 HYDROcodone/APAP 10-325MG [[place] 1 tab PO Q6HR PRN 01/17/19 05/16/19 10-325] Butalb/APAP/Caff 50-325-40Mg 1 tab PO DAILY PRN 04/05/19 05/16/19 [Fioricet 50-325-40] Ibuprofen [Motrin] 800 mg PO Q12HR 04/05/19 05/18/19 Previous Rx's Medication Instructions Recorded Furosemide [Lasix] 20 mg PO DAILY tab 08/22/18 Levothyroxine Sodium [Synthroid] 100 mcg PO DAILY@0630 tab 08/22/18 Nicotine 14Mg/24Hr Patch [Habitrol] 1 patch TRANSDERM DAILY #30 patch 08/22/18 Venlafaxine HCl ER [Effexor XR] 150 mg PO 2000 #30 cap.er.24h 08/22/18 Dicyclomine [Bentyl] 20 mg PO QID PRN #20 tablet 04/06/19 metroNIDAZOLE [Flagyl] 500 mg PO BID #14 tab 11/08/19 Allergies Allergy/AdvReac Type Severity Reaction Status Date / Time No Known Allergies Allergy Verified 11/08/19 12:27 Review of Systems ROS Statement: Those systems with pertinent positive or pertinent negative responses have been documented in the HPI. ROS Other: All systems not noted in ROS Statement are negative. Past Medical History Past Medical History: GERD/Reflux, Hypertension, Thyroid Disorder Additional Past Medical History / Comment(s): hx. brain aneurysm status post stent placement. Headaches. DDD, frequent diarrhea History of Any Multi-Drug Resistant Organisms: MRSA Date of last positivie culture/infection: 2007 MDRO Source:: face Past Surgical History: Section, Orthopedic Surgery, Tubal Ligation Additional Past Surgical History / Comment(s): rt sided brain coil and stent, arthroscopy rightknee x2, left knee x1 Past Anesthesia/Blood Transfusion Reactions: No Reported Reaction Past Psychological History: Depression Smoking Status: Current every day smoker Past Alcohol Use History: Occasional Past Drug Use History: Marijuana - Past Family History Father Family Medical History: Diabetes Mellitus Additional Family Medical History / Comment(s): Grandmother had leukemia. General Exam Limitations: no limitations General appearance: alert, in no apparent distress Head exam: Present: atraumatic, normocephalic, normal inspection Eye exam: Present: normal appearance Pupils: Present: normal accommodation ENT exam: Present: normal exam, mucous membranes moist Neck exam: Present: normal inspection, full ROM Respiratory exam: Present: normal lung sounds bilaterally Cardiovascular Exam: Present: regular rate, normal rhythm, normal heart sounds GI/Abdominal exam: Present: soft. Absent: distended, tenderness, guarding Speculum exam: Present: normal speculum exam, vaginal discharge (Hernandez, watery). Absent: erythema, vaginal bleeding, foreign body, laceration, other (No strawberry cervix.) Extremities exam: Present: normal inspection, full ROM Back exam: Present: normal inspection, full ROM Neurological exam: Present: alert, oriented X3 Psychiatric exam: Present: normal affect, normal mood Skin exam: Present: warm, dry, intact, normal color Course Vital Signs 11/08/19 12:22 Temperature 98.5 F Pulse Rate 69 Respiratory 16 Rate Blood Pressure 146/78 O2 Sat by Pulse 100 Oximetry Medical Decision Making - Medical Decision Making Patient is a 43-year-old female presenting to the emergency department with a chief complaint of a possible STI. exam shows mild hernandez discharge that has a watery consistency. Mild foul smell noted. No vaginal trauma or laceration to the vaginal levin. No strawberry cervix. Negative chandelier sign. Patient states she wants to be treated for any STI at the moment. Trichomonas negative. Gonorrhea chlamydia pending. I suspect the patient has bacterial vaginosis although she wants to be treated for everything. Patient given azithromycin and Rocephin in the ED. Patient will be discharged with a seven-day course of Flagyl. Patient advised not to drink alcohol while taking the medication. Patient advised to avoid any sexual activity for the next 2 weeks. Strict return parameters were thoroughly discussed with patient was understanding and agreeable. Case discussed with physician. - Lab Data Lab Results 11/08/19 11/08/19 Range/Units 12:30 12:59 Urine Color Light Yellow Urine Appearance Clear (Clear) Urine pH 5.0 (5.0-8.0) Ur Specific [place] 1.006 (1.001-1.035) Urine Protein Negative (Negative) Urine Glucose (UA) Negative (Negative) Urine Ketones Negative (Negative) Urine Blood Negative (Negative) Urine Nitrite Negative (Negative) Urine Bilirubin Negative (Negative) Urine Urobilinogen <2.0 (<2.0) mg/dL Ur Leukocyte Esterase Small H (Negative) Urine RBC 1 (0-5) /hpf Urine WBC 1 (0-5) /hpf Ur Squamous Epith Cells 2 (0-4) /hpf Hyaline Casts 3 H (0-2) /lpf Urine Mucus Rare H (None) /hpf Trichomonas Ag (Rapid) Negative (Negative) Disposition Clinical Impression: Bacterial vaginosis Disposition: HOME SELF-CARE Condition: Stable Instructions (If sedation given, give patient instructions): Bacterial Vaginosis (ED) Additional Instructions: Please take prescribed medication as directed. Avoid sexual activity. Not drink alcohol while taking the medication. Prescriptions: metroNIDAZOLE [Flagyl] 500 mg PO BID #14 tab Is patient prescribed a controlled substance at d/c from ED?: No Referrals: Enzo Springer MD [Primary Care Provider] - 1-2 days Time of Disposition: 13:23
[2019-11-08] MEDS ORDERED: cefTRIAXone 250 MG VIAL IM STA (13:16)
[2019-11-08] MEDS ORDERED: AZITHROMYCIN 250 MG TAB PO STA (13:16)
[2019-11-08 13:18] LABS: Appearance,Urine Clear (Clear); Bilirubin,Urine Negative (Negative); Blood,Urine Negative (Negative); Color,Urine Light Yellow; Glucose,Urine (UA) Negative (Negative); Hyaline Casts,Urine 3 /lpf (0-2); Ketones,Urine Negative (Negative); Leukocyte Esterase,Urine Small (Negative); Mucus,Urine Rare /hpf; Nitrite,Urine Negative (Negative); Protein,Urine Negative (Negative); RBC,Urine 1 /hpf (0-5); Specific Gravity,Urine 1.006 (1.001-1.035); Squamous Epithelial Cell,Urine 2 /hpf (0-4); Urobilinogen,Urine <2.0 mg/dL (<2.0)
[2019-11-08 13:39] VITALS: BP 142/72; PULSE 74; RESP 18; TEMP 98.2
[2019-11-09 14:43] LABS: C. trachomatis,PCR Positive (Neg,Equiv); Chlamydia trachomatis Source Cervix; N. gonorrhoeae,PCR Negative (Neg,Equiv); Neisseria Source Cervix
== END 2019-11-08 13:30 | disposition home or self-care (01) ==
LOC: EC 12:20
DX: N76.0 Acute vaginitis (principal); B96.89 Other specified bacterial agents as the cause of diseases classified elsewhere; F32.9 Major depressive disorder, single episode, unspecified; F17.200 Nicotine dependence, unspecified, uncomplicated; Z79.1 Long term (current) use of non-steroidal anti-inflammatories (NSAID); Z79.899 Other long term (current) drug therapy; Z86.14 Personal history of Methicillin resistant Staphylococcus aureus infection; Z87.39 Personal history of other diseases of the musculoskeletal system and connective tissue; Z86.69 Personal history of other diseases of the nervous system and sense organs; Z96.89 Presence of other specified functional implants; Z98.51 Tubal ligation status
CPT/HCPCS: 81001; 87808; 87491; 87591; 99283; 96372; J0696